=== PATIENT | male | born 1955 | race American Indian/Alaskan Native ===

== ENCOUNTER 2021-04-10 06:03 | Emergency (ER) | payer MEDICARE ==
[2021-04-10 07:30] VITALS: BP 189/127
--- NOTE | 2021-04-10 10:03 | Emergency Department Report ---
ED General Adult HPI - General Chief complaint: Medical Clearance Stated complaint: MEDICAL CLEARANCE Time Seen by Provider: 04/10/21 09:12 Source: patient Mode of arrival: Ambulatory Limitations: No Limitations - History of Present Illness Initial comments: 65-year-old -English male patient presents for medical clearance for [place]. Patient states he is going to [place] to detox from alcohol. He does state polysubstance abuse.. He denies any SI/HI, history of withdrawal seizures, abdominal pain, chest pain, or shortness of breath today. He states he is otherwise feeling well. Patient reports his last drink was yesterday - Related Data Allergies Allergy/AdvReac Type Severity Reaction Status Date / Time No Known Allergies Allergy Verified 04/10/21 07:30 ED Review of Systems ROS: Stated complaint: MEDICAL CLEARANCE Other details as noted in HPI Constitutional: denies: chills, diaphoresis, fever, malaise, weakness Respiratory: denies: cough, shortness of breath Cardiovascular: denies: chest pain Gastrointestinal: denies: abdominal pain, nausea, vomiting Neurological: denies: headache, weakness ED Physical Exam - General Limitations: No Limitations General appearance: alert, in no apparent distress - Head Head exam: Present: atraumatic, normocephalic - Eye Eye exam: Present: normal appearance - Respiratory Respiratory exam: Absent: respiratory distress - Cardiovascular Cardiovascular Exam: Present: regular rate, normal rhythm - GI/Abdominal GI/Abdominal exam: Present: soft. Absent: tenderness - Neurological Exam Neurological exam: Present: alert, oriented X3 - Psychiatric Psychiatric exam: Present: normal affect, normal mood - Skin Skin exam: Present: warm, dry, intact, normal color. Absent: rash ED Course Vital Signs 04/10/21 07:30 Temperature 97.9 F Pulse Rate 75 Respiratory 18 Rate Blood Pressure 189/127 [Left] O2 Sat by Pulse 98 Oximetry ED Medical Decision Making - Lab Data Result diagrams: 04/10/21 13:06 04/10/21 13:06 Lab Results 04/10/21 04/10/21 04/10/21 Range/Units 12:12 12:12 13:06 WBC 4.4 L (4.5-11.0) K/mm3 RBC 5.37 H (3.65-5.03) M/mm3 Hgb 17.5 H (11.8-15.2) gm/dl Hct 51.7 H (35.5-45.6) % MCV 96 H (84-94) fl MCH 33 H (28-32) pg MCHC 34 (32-34) % RDW 15.0 (13.2-15.2) % Plt Count 233 (140-440) K/mm3 Lymph % (Auto) 39.0 H (13.4-35.0) % Garrett % (Auto) 14.0 H (0.0-7.3) % Eos % (Auto) 5.2 H (0.0-4.3) % Baso % (Auto) 1.4 (0.0-1.8) % Lymph # (Auto) 1.7 (1.2-5.4) K/mm3 Garrett # (Auto) 0.6 (0.0-0.8) K/mm3 Eos # (Auto) 0.2 (0.0-0.4) K/mm3 Baso # (Auto) 0.1 (0.0-0.1) K/mm3 Seg Neutrophils % 40.4 (40.0-70.0) % Seg Neutrophils # 1.8 (1.8-7.7) K/mm3 Sodium (137-145) mmol/L Potassium (3.6-5.0) mmol/L Chloride (98-107) mmol/L Carbon Dioxide (22-30) mmol/L Anion Gap mmol/L BUN (9-20) mg/dL Creatinine (0.8-1.3) mg/dL Estimated GFR ml/min BUN/Creatinine Ratio % Glucose (75-100) mg/dL Calcium (8.4-10.2) mg/dL Total Bilirubin (0.1-1.2) mg/dL AST (5-40) units/L ALT (7-56) units/L Alkaline Phosphatase (35-129) units/L Total Protein (6.3-8.2) g/dL Albumin (3.9-5) g/dL Albumin/Globulin Ratio % Urine Color Yellow (Yellow) Urine Turbidity Clear (Clear) Urine pH 7.0 (5.0-7.0) Ur Specific [place] 1.012 (1.003-1.030) Urine Protein 30 mg/dl (Negative) mg/dL Urine Glucose (UA) Neg (Negative) mg/dL Urine Ketones Neg (Negative) mg/dL Urine Blood Neg (Negative) Urine Nitrite Neg (Negative) Urine Bilirubin Neg (Negative) Urine Urobilinogen < 2.0 (<2.0) mg/dL Ur Leukocyte Esterase Neg (Negative) Urine WBC (Auto) 5.0 (0.0-6.0) /HPF Urine RBC (Auto) 2.0 (0.0-6.0) /HPF U Epithel Cells (Auto) 2.0 (0-13.0) /HPF Salicylates (2.8-20.0) mg/dL Urine Opiates Screen Presumptive negative Urine Methadone Screen Presumptive negative Acetaminophen (10.0-30.0) ug/mL Ur Barbiturates Screen Presumptive negative Ur Phencyclidine Scrn Presumptive negative Ur Amphetamines Screen Presumptive negative U Benzodiazepines Scrn Presumptive negative Urine Cocaine Screen Presumptive positive U Marijuana (THC) Screen Presumptive negative Drugs of Abuse Note Disclamer 04/10/21 04/10/21 04/10/21 Range/Units 13:06 13:06 13:06 WBC (4.5-11.0) K/mm3 RBC (3.65-5.03) M/mm3 Hgb (11.8-15.2) gm/dl Hct (35.5-45.6) % MCV (84-94) fl MCH (28-32) pg MCHC (32-34) % RDW (13.2-15.2) % Plt Count (140-440) K/mm3 Lymph % (Auto) (13.4-35.0) % Garrett % (Auto) (0.0-7.3) % Eos % (Auto) (0.0-4.3) % Baso % (Auto) (0.0-1.8) % Lymph # (Auto) (1.2-5.4) K/mm3 Garrett # (Auto) (0.0-0.8) K/mm3 Eos # (Auto) (0.0-0.4) K/mm3 Baso # (Auto) (0.0-0.1) K/mm3 Seg Neutrophils % (40.0-70.0) % Seg Neutrophils # (1.8-7.7) K/mm3 Sodium 140 (137-145) mmol/L Potassium 4.5 (3.6-5.0) mmol/L Chloride 99.2 (98-107) mmol/L Carbon Dioxide 33 H (22-30) mmol/L Anion Gap 12 mmol/L BUN 24 H (9-20) mg/dL Creatinine 1.5 H (0.8-1.3) mg/dL Estimated GFR 56 ml/min BUN/Creatinine Ratio 16 % Glucose 99 (75-100) mg/dL Calcium 9.4 (8.4-10.2) mg/dL Total Bilirubin 0.40 (0.1-1.2) mg/dL AST 83 H (5-40) units/L ALT 60 H (7-56) units/L Alkaline Phosphatase 94 (35-129) units/L Total Protein 8.5 H (6.3-8.2) g/dL Albumin 4.4 (3.9-5) g/dL Albumin/Globulin Ratio 1.1 % Urine Color (Yellow) Urine Turbidity (Clear) Urine pH (5.0-7.0) Ur Specific [place] (1.003-1.030) Urine Protein (Negative) mg/dL Urine Glucose (UA) (Negative) mg/dL Urine Ketones (Negative) mg/dL Urine Blood (Negative) Urine Nitrite (Negative) Urine Bilirubin (Negative) Urine Urobilinogen (<2.0) mg/dL Ur Leukocyte Esterase (Negative) Urine WBC (Auto) (0.0-6.0) /HPF Urine RBC (Auto) (0.0-6.0) /HPF U Epithel Cells (Auto) (0-13.0) /HPF Salicylates < 0.3 L (2.8-20.0) mg/dL Urine Opiates Screen Urine Methadone Screen Acetaminophen 5.0 L (10.0-30.0) ug/mL Ur Barbiturates Screen Ur Phencyclidine Scrn Ur Amphetamines Screen U Benzodiazepines Scrn Urine Cocaine Screen U Marijuana (THC) Screen Drugs of Abuse Note - Medical Decision Making 65-year-old -English male patient presents for medical clearance for [place]. Patient states he is going to [facility] to detox from alcohol. He does state polysubstance abuse.. He denies any SI/HI, history of withdrawal seizures, abdominal pain, chest pain, or shortness of breath today. He states he is otherwise feeling well. Patient reports his last drink was yesterday Labs show mildly increased creatinine at 1.5 and a GFR 56. Drug screen is positive for cocaine. Mild elevation in LFTs noted, likely due to chronic alcohol abuse. His vitals are within normal limits and he is well-appearing without tremors. Patient is stable for discharge home. He is medically clear for admission to psychiatric facility for alcohol detox. Patient instructed to follow-up with primary care doctor for further evaluation of his kidney function and liver function. Patient verbalizes understanding of plan of care. Critical care attestation.: If time is entered above; I have spent that time in minutes in the direct care of this critically ill patient, excluding procedure time. ED Disposition Clinical Impression: Medical clearance for psychiatric admission Disposition: HOME / SELF CARE / HOMELESS Is pt being admited?: No Condition: Stable Instructions: Alcohol Use Disorder Additional Instructions: You are medically clear for admission to a detox facility Referrals: PRIMARY MD CELIA [Primary Care Provider] - 3-5 Days
[2021-04-10 12:21] LABS: Bilirubin,Urine NEG (Negative); Blood,Urine NEG (Negative); Color,Urine Yellow (Yellow); Urobilinogen,Urine < 2.0 mg/dL (<2.0)
[2021-04-10 12:45] LABS: Amphetamine Screen,Urine PRESUMPTIVE NEGATIVE; Benzodiazepines Screen,Urine PRESUMPTIVE NEGATIVE; Cannabinoid Screen,Urine PRESUMPTIVE NEGATIVE; Cocaine Screen,Urine PRESUMPTIVE POSITIVE; Methadone Screen,Urine PRESUMPTIVE NEGATIVE; Opiate Screen,Urine PRESUMPTIVE NEGATIVE
[2021-04-10 13:48] LABS: Basophils # (Auto) 0.1 K/mm3 (0.0-0.1); Basophils % (Auto) 1.4 % (0.0-1.8); Eosinophils # (Auto) 0.2 K/mm3 (0.0-0.4); Eosinophils % (Auto) 5.2 % (0.0-4.3); Hematocrit 51.7 % (35.5-45.6); Hemoglobin 17.5 gm/dl (11.8-15.2); Lymphocytes # (Auto) 1.7 K/mm3 (1.2-5.4); Mean Corpuscular HGB Conc 34 % (32-34); Mean Corpuscular Volume 96 fl (84-94); Monocytes # (Auto) 0.6 K/mm3 (0.0-0.8); Platelet Count 233 K/mm3 (140-440); Red Blood Count 5.37 M/mm3 (3.65-5.03)
[2021-04-10 14:02] LABS: Albumin 4.4 g/dL (3.9-5); Calcium 9.4 mg/dL (8.4-10.2)
== END 2021-04-11 03:32 | disposition home or self-care (01) ==
LOC: ED 06:03
DX: Z13.30 Encounter for screening examination for mental health and behavioral disorders, unspecified (principal); F19.10 Other psychoactive substance abuse, uncomplicated
CPT/HCPCS: 36415; 80053; 80307; 80320; 81001; 85025; 99283; G0480

== ENCOUNTER 2021-04-16 10:29 | Inpatient (IN) | payer MEDICARE ==
[2021-04-16 12:12] LABS: Eosinophils # (Auto) 0.2 K/mm3 (0.0-0.4); Eosinophils % (Auto) 5.6 % (0.0-4.3); Hematocrit 48.5 % (35.5-45.6); Hemoglobin 16.2 gm/dl (11.8-15.2); Lymphocytes # (Auto) 1.2 K/mm3 (1.2-5.4); Lymphocytes % (Auto) 30.4 % (13.4-35.0); Mean Corpuscular HGB Conc 34 % (32-34); Mean Corpuscular Volume 96 fl (84-94); Monocytes # (Auto) 0.6 K/mm3 (0.0-0.8); Monocytes % (Auto) 15.1 % (0.0-7.3); Platelet Count 217 K/mm3 (140-440); Red Blood Count 5.04 M/mm3 (3.65-5.03); Red Cell Distribution Width 15.1 % (13.2-15.2)
--- NOTE | 2021-04-16 12:20 | Emergency Department Report ---
ED Neuro Deficit HPI - General Chief Complaint: Weakness Stated Complaint: BILATERAL LEG WEAKNESS X 2 DAYS Time Seen by Provider: 04/16/21 11:18 Source: patient, EMS Mode of arrival: Stretcher Limitations: No Limitations - History of Present Illness Initial Comments: Chief complaint: Bilateral leg weakness . HPI: This is a 65-year-old male with history of hypertension, alcohol dependence, cocaine dependence who presents with bilateral leg weakness urinary incontinence for the last 2 days. Patient denies trauma. He denies headache neck pain back pain. No previous history of back pain. He has been a patient at [facility] for the past several days. No recent vaccinations. He has not been vaccinated against COVID-19. He has had recent negative COVID-19 test. He currently is a patient at [facility] for polysubstance abuse rehabilitation. [place]" for 3 months. He has not had primary care in over 2 years. He was followed closely by PCP prior to that time. 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 He is estranged from his family members. His mother of COVID-19 complications this year. He is in touch with sister who lives in [place]. He was not given anything in his mother's estate. He is very upset that he was cut off financially from the family. -: Gradual, days(s) (2 days) History of same: No Severity: severe Quality: weak Improves With: none Worsens With: none On Anticoagulants: No Associated Symptoms: other (Bilateral leg weakness, inability to walk, urinary incontinence) Treatments Prior to Arrival: other (Mental health evaluation at [facility]) - Related Data Allergies/Adverse Reactions: Allergies Allergy/AdvReac Type Severity Reaction Status Date / Time No Known Allergies Allergy Verified 04/16/21 17:03 ED Review of Systems ROS: Stated complaint: BILATERAL LEG WEAKNESS X 2 DAYS Other details as noted in HPI Comment: All other systems reviewed and negative Constitutional: other (Denies weight loss). denies: chills, fever, malaise Respiratory: denies: cough, orthopnea Cardiovascular: denies: chest pain Gastrointestinal: denies: abdominal pain, nausea, vomiting Musculoskeletal: denies: back pain Neurological: denies: headache ED Past Medical Hx - Past Medical History Previous Medical History?: Yes Hx Hypertension: Yes Additional medical history: Alcohol dependence, cocaine dependence - Surgical History Past Surgical History?: Yes Additional Surgical History: Left hip replacement, urethral stricture surgery - Social History Smoking Status: Current Every Day Smoker Substance Use Type: Alcohol, Cocaine, Marijuana ED Neuro Physical Exam - General Limitations: No Limitations General appearance: alert, in no apparent distress Suspected Stroke: Yes - Head Head exam: Present: atraumatic, normocephalic - Eye Eye exam: Present: normal appearance - ENT ENT exam: Present: mucous membranes moist - Neck Neck exam: Present: normal inspection, full ROM - Respiratory Respiratory exam: Present: normal lung sounds bilaterally. Absent: respiratory distress, wheezes, rales, rhonchi - Cardiovascular Cardiovascular Exam: Present: regular rate, normal rhythm, normal heart sounds. Absent: systolic murmur, diastolic murmur, rubs, gallop - GI/Abdominal GI/Abdominal exam: Present: soft, normal bowel sounds. Absent: distended, tenderness, guarding, rebound - Rectal Rectal exam: Present: decreased rectal tone, other (Decreased rectal tone) - Extremities Exam Extremities exam: Present: normal inspection - Neurological Exam Neurological exam: Present: alert, oriented X3 - NIHSS Assessment Interval: Baseline 1a. Level of Consciousness: alert/keenly responsive 1b. LOC Questions: answers both correctly 1c. LOC Commands: performs tasks correctly 2. Best Gaze: normal 3. Visual: no visual loss 4. Facial Palsy: normal symmetrical movement 5b. Motor Arm Right: no drift 5a. Motor Arm Left: no drift 6a. Motor Leg Left: drift 6b. Motor Leg Right: drift 7. Limb Ataxia: present 2 limbs (Both legs) 8. Sensory: coma/unresponsive 9. Best Language: no aphasia 10. Dysarthria: normal 11. Extinction/Inattention: no abnormality Total Score: 6 Stroke Severity: Moderate Stroke - Psychiatric Psychiatric exam: Present: normal affect, normal mood - Skin Skin exam: Present: warm, dry, intact, normal color. Absent: rash ED Course Vital Signs 04/16/21 04/16/21 04/16/21 11:16 11:23 14:42 Pulse Rate 62 110 H Respiratory 16 16 Rate Blood Pressure 138/94 155/83 [Left] O2 Sat by Pulse 96 98 99 Oximetry - Reevaluation(s) Reevaluation #1: 04/16/21 12:20 MR maintenance technician 2nd shift is taking patient to radiology for imaging. - Lab Data Result diagrams: 04/16/21 11:52 04/16/21 11:52 Lab Results 04/16/21 04/16/21 04/16/21 Range/Units 11:52 11:52 11:52 WBC 4.0 L (4.5-11.0) K/mm3 RBC 5.04 H (3.65-5.03) M/mm3 Hgb 16.2 H (11.8-15.2) gm/dl Hct 48.5 H (35.5-45.6) % MCV 96 H (84-94) fl MCH 32 (28-32) pg MCHC 34 (32-34) % RDW 15.1 (13.2-15.2) % Plt Count 217 (140-440) K/mm3 Lymph % (Auto) 30.4 (13.4-35.0) % Butts % (Auto) 15.1 H (0.0-7.3) % Eos % (Auto) 5.6 H (0.0-4.3) % Baso % (Auto) 1.0 (0.0-1.8) % Lymph # (Auto) 1.2 (1.2-5.4) K/mm3 Butts # (Auto) 0.6 (0.0-0.8) K/mm3 Eos # (Auto) 0.2 (0.0-0.4) K/mm3 Baso # (Auto) 0.0 (0.0-0.1) K/mm3 Seg Neutrophils % 47.9 (40.0-70.0) % Seg Neutrophils # 1.9 (1.8-7.7) K/mm3 Sodium 136 L (137-145) mmol/L Potassium 4.5 (3.6-5.0) mmol/L Chloride 100.1 (98-107) mmol/L Carbon Dioxide 32 H (22-30) mmol/L Anion Gap 8 mmol/L BUN 21 H (9-20) mg/dL Creatinine 1.8 H (0.8-1.3) mg/dL Estimated GFR 46 ml/min BUN/Creatinine Ratio 12 % Glucose 88 (75-100) mg/dL Calcium 9.1 (8.4-10.2) mg/dL Phosphorus 3.70 (2.5-4.5) mg/dL Magnesium 1.90 (1.7-2.3) mg/dL Total Bilirubin 0.40 (0.1-1.2) mg/dL AST 76 H (5-40) units/L ALT 72 H (7-56) units/L Alkaline Phosphatase 87 (35-129) units/L Total Creatine Kinase (55-170) units/L Total Protein 7.6 (6.3-8.2) g/dL Albumin 3.7 L (3.9-5) g/dL Albumin/Globulin Ratio 0.9 % TSH 0.682 (0.270-4.200) mlU/mL 04/16/21 Range/Units 15:31 WBC (4.5-11.0) K/mm3 RBC (3.65-5.03) M/mm3 Hgb (11.8-15.2) gm/dl Hct (35.5-45.6) % MCV (84-94) fl MCH (28-32) pg MCHC (32-34) % RDW (13.2-15.2) % Plt Count (140-440) K/mm3 Lymph % (Auto) (13.4-35.0) % Butts % (Auto) (0.0-7.3) % Eos % (Auto) (0.0-4.3) % Baso % (Auto) (0.0-1.8) % Lymph # (Auto) (1.2-5.4) K/mm3 Butts # (Auto) (0.0-0.8) K/mm3 Eos # (Auto) (0.0-0.4) K/mm3 Baso # (Auto) (0.0-0.1) K/mm3 Seg Neutrophils % (40.0-70.0) % Seg Neutrophils # (1.8-7.7) K/mm3 Sodium (137-145) mmol/L Potassium (3.6-5.0) mmol/L Chloride (98-107) mmol/L Carbon Dioxide (22-30) mmol/L Anion Gap mmol/L BUN (9-20) mg/dL Creatinine (0.8-1.3) mg/dL Estimated GFR ml/min BUN/Creatinine Ratio % Glucose (75-100) mg/dL Calcium (8.4-10.2) mg/dL Phosphorus (2.5-4.5) mg/dL Magnesium (1.7-2.3) mg/dL Total Bilirubin (0.1-1.2) mg/dL AST (5-40) units/L ALT (7-56) units/L Alkaline Phosphatase (35-129) units/L Total Creatine Kinase 177 H (55-170) units/L Total Protein (6.3-8.2) g/dL Albumin (3.9-5) g/dL Albumin/Globulin Ratio % TSH (0.270-4.200) mlU/mL - Radiology Data Radiology results: report reviewed Patient Name: ORI COTO Gender: Male Date of : 1955 Referring Provider: ANGELA HOLLINS Organization: [facility] Accession Number: [id number] Requested Date: April 16, 2021 11:33 Report Status: Final Requested Procedure: 1 Procedure Description: MR thoracic spine wo con Modality: MR Findings Reporting MD: Andrea Jane Dictation Time: April 16, 2021 13:28 Manager Of Compliance: Not available Orchestra Director Date: MRI THORACIC SPINE 04/16/2021 INDICATION / CLINICAL INFORMATION: Bilateral leg weakness urinary incontinence. COMPARISON: None available. FINDINGS: GENERAL OBSERVATIONS: Unenhanced MR images of the thoracic spine demonstrate no evidence of acute abnormality. There is no evidence of spinal cord compression or intrinsic spinal cord abnormality. Vertebral body height and alignment is normal. Disc profiles are normal at all levels in the thoracic spine. There is no evidence of canal stenosis or foraminal encroachment. BONE MARROW: Normal SPINAL CORD: Normal PARASPINAL SOFT TISSUES: No significant abnormality. IMPRESSION: No significant abnormality. Signer Name: Andrea Jane MD Signed: 04/16/2021 1:28 PM Workstation Name: [id number] Patient Name: ORI COTO Gender: Male Date of : 1955 Referring Provider: ANGELA HOLLINS Organization: [facility] Accession Number: [id number] Requested Date: April 16, 2021 11:33 Report Status: Final Requested Procedure: 1 Procedure Description: MR brain wo con Modality: MR Findings Reporting MD: Andrea Jane Dictation Time: April 16, 2021 13:31 Manager Of Compliance: Not available Orchestra Director Date: MRI BRAIN 04/16/2021 INDICATION / CLINICAL INFORMATION: Bilateral leg weakness urinary incontinence. TECHNIQUE: Multiplanar, multisequence MR images of the brain were obtained. COMPARISON: None available. FINDINGS: BRAIN / INTRACRANIAL CONTENTS: Unenhanced MR images of the brain demonstrate no evidence of acute abnormality. Ventricles and sulci are prominent in size, consistent with diffuse cerebral atrophy. There is prominent chronic white matter T2 weighted hyperintensities present throughout the periventricular and deep white matter of the cerebral hemispheres. There is evidence of focal lacunar changes in the thalami bilaterally and right paramedian elkin. There is no evidence of acute ischemic injury, hemorrhage, or mass. There are no abnormal extra-axial fluid collections. EXTRACRANIAL: Unremarkable CRANIOCERVICAL JUNCTION: No significant abnormality. VASCULAR FLOW-VOIDS: No significant abnormality. IMPRESSION: Chronic and age-related changes. No acute abnormality. Signer Name: Andrea Jane MD Signed: 04/16/2021 1:31 PM Workstation Name: [id number] Patient Name: ORI COTO Gender: Male Date of : 1955 Referring Provider: ANGELA HOLLINS Organization: [facility] Accession Number: [id number] Requested Date: April 16, 2021 11:33 Report Status: Final Requested Procedure: 1 Procedure Description: MR lumbar spine wo con Modality: MR Findings Reporting MD: Andrea Jane Dictation Time: April 16, 2021 13:27 Manager Of Compliance: Not available Orchestra Director Date: MRI LUMBAR SPINE 04/16/2021 INDICATION / CLINICAL INFORMATION: Bilateral leg weakness urinary incontinence. COMPARISON: None available. FINDINGS: GENERAL OBSERVATIONS: Unenhanced MR images of the lumbar spine were obtained. There is mild right convex scoliosis centered at the thoracolumbar junction. Multilevel degenerative changes are present as detailed below. [id number] ANALYSIS: L5-S1: Moderate diffuse disc bulging. Mild central canal narrowing with prominent bilateral foraminal encroachment and possible compression of the exiting right and left L5 nerve roots. L4-5: Mild symmetric diffuse disc bulging. L3-4: Moderate symmetric diffuse disc bulging. Moderate central canal narrowing, with right-sided foraminal narrowing present. L2-3: Prominent diffuse disc bulging associated with moderately severe central canal stenosis. No evidence of lateralization. L1-2: Unremarkable. BONE MARROW: Degenerative changes. No significant abnormality. SPINAL CORD/CAUDA EQUINA: Unremarkable PARASPINAL SOFT TISSUES: No significant abnormality. IMPRESSION: 1. No acute abnormality. 2. Multilevel degenerative changes as detailed above. Moderately severe central canal stenosis at L2-3. Signer Name: Andrea Jane MD [facility] [address] , [address] [place] [address] Patient Name: ORI COTO Gender: Male Date of : 1955 Referring Provider: ANGELA HOLLINS Organization: [facility] Accession Number: [id number] Requested Date: April 16, 2021 11:38 Report Status: Final Requested Procedure: 1 Procedure Description: XR chest 1V ap Modality: XR Findings Reporting MD: Sudeep Sanchez Dictation Time: April 16, 2021 11:26 Manager Of Compliance: Not available Orchestra Director Date: CHEST 1 VIEW INDICATION: bilateral leg weakness. COMPARISON: None. FINDINGS: Support devices: None. Heart: Normal. Lungs/Pleura: No acute pulmonary or pleural findings. There is mild scarring versus atelectasis in the left lung base. IMPRESSION: 1. No acute findings. Signer Name: Sudeep Sanchez MD Signed: 04/16/2021 11:26 AM Workstation Name: [id number] - Medical Decision Making This is a 65-year-old male with history of alcohol dependence, hypertension, cocaine use who presents with viral leg weakness, unsteady gait possible urinary incontinence. Due to decreased rectal tone I was concerned for cord compression. Fortunately MRI denied reveal any significant spinal canal encroachment or spinal cord abnormality. I discussed case with Dr. Rojas neurosurgeon who confirms that patient does not have a neurological emergency or significant spinal cord compression which would need intervention. Differential diagnosis includes Warnicke's encephalopathy, delirium tremens, vitamin deficiency causing neuropathy, alcoholic myopathy. CVA intracranial lesion ruled out with MRI of the brain which revealed chronic age-related changes. Critical Care Time: Yes Critical care time in (mins) excluding proc time.: 40 Critical care attestation.: If time is entered above; I have spent that time in minutes in the direct care of this critically ill patient, excluding procedure time. 40 minutes of critical care time excluding procedures were used in the care of the patient. I came immediately to the bedside upon patient's arrival. I obtained history from EMS at the bedside. I discussed treatment plan with the nursing team members. I reviewed electronic record. I ordered stat MRI: I was concerned for spinal cord compression considering patient's findings of leg weakness decreased rectal tone reported urinary incontinence.. Patient required multiple interventions and reassessments. ED Disposition Clinical Impression: Delirium tremens, Acute kidney injury (KRISH) with acute tubular necrosis (ATN), Lumbar disc disease, Metabolic encephalopathy Disposition: ADMITTED INPATIENT Is pt being admited?: Yes Does the pt Need Aspirin: No Condition: Fair
--- NOTE | 2021-04-16 12:30 | XRay Report ---
CHEST 1 VIEW INDICATION: bilateral leg weakness. COMPARISON: None. FINDINGS: Support devices: None. Heart: Normal. Lungs/Pleura: No acute pulmonary or pleural findings. There is mild scarring versus atelectasis in th e left lung base. IMPRESSION: 1. No acute findings. Signer Name: Sudeep Sanchez MD Signed: 04/16/2021 12:26 PM Workstation Name: [id number]
[2021-04-16 12:36] LABS: Albumin 3.7 g/dL (3.9-5); Calcium 9.1 mg/dL (8.4-10.2)
--- NOTE | 2021-04-16 14:31 | Magnetic Resonance Report ---
MRI LUMBAR SPINE 04/16/2021 INDICATION / CLINICAL INFORMATION: Bilateral leg weakness urinary incontinence. COMPARISON: None available. FINDINGS: GENERAL OBSERVATIONS: Unenhanced MR images of the lumbar spine were obtained. There is mild right convex scoliosis centered at the thoracolumbar junction. Multilevel degenerative changes are present as detailed below. [id number] ANALYSIS: L5-S1: Moderate diffuse disc bulging. Mild central canal narrowing with prominent bilateral foraminal encroachment and possible compression of the exiting right and left L5 nerve roots. L4-5: Mild symmetric diffuse disc bulging. L3-4: Moderate symmetric diffuse disc bulging. Moderate central canal narrowing, with right-sided for aminal narrowing present. L2-3: Prominent diffuse disc bulging associated with moderately severe central canal stenosis. No ric dence of lateralization. L1-2: Unremarkable. BONE MARROW: Degenerative changes. No significant abnormality. SPINAL CORD/CAUDA EQUINA: Unremarkable PARASPINAL SOFT TISSUES: No significant abnormality. IMPRESSION: 1. No acute abnormality. 2. Multilevel degenerative changes as detailed above. Moderately severe central canal stenosis at L2- 3. Signer Name: Andrea Jane MD Signed: 04/16/2021 2:27 PM Workstation Name: [id number]
--- NOTE | 2021-04-16 14:33 | Magnetic Resonance Report ---
MRI THORACIC SPINE 04/16/2021 INDICATION / CLINICAL INFORMATION: Bilateral leg weakness urinary incontinence. COMPARISON: None available. FINDINGS: GENERAL OBSERVATIONS: Unenhanced MR images of the thoracic spine demonstrate no evidence of acute abn ormality. There is no evidence of spinal cord compression or intrinsic spinal cord abnormality. Vertebral body height and alignment is normal. Disc profiles are normal at all levels in the thoracic spine. There is no evidence of canal stenosis or foraminal encroachment. BONE MARROW: Normal SPINAL CORD: Normal PARASPINAL SOFT TISSUES: No significant abnormality. IMPRESSION: No significant abnormality. Signer Name: Andrea Jane MD Signed: 04/16/2021 2:28 PM Workstation Name: [facility])-[id number]
--- NOTE | 2021-04-16 14:36 | Magnetic Resonance Report ---
MRI BRAIN 04/16/2021 INDICATION / CLINICAL INFORMATION: Bilateral leg weakness urinary incontinence. TECHNIQUE: Multiplanar, multisequence MR images of the brain were obtained. COMPARISON: None available. FINDINGS: BRAIN / INTRACRANIAL CONTENTS: Unenhanced MR images of the brain demonstrate no evidence of acute abn ormality. Ventricles and sulci are prominent in size, consistent with diffuse cerebral atrophy. There is prominent chronic white matter T2 weighted hyperintensities present throughout the periventr icular and deep white matter of the cerebral hemispheres. There is evidence of focal lacunar changes in the thalami bilaterally and right paramedian elkin. There is no evidence of acute ischemic injury, hemorrhage, or mass. There are no abnormal extra-axial fluid collections. EXTRACRANIAL: Unremarkable CRANIOCERVICAL JUNCTION: No significant abnormality. VASCULAR FLOW-VOIDS: No significant abnormality. IMPRESSION: Chronic and age-related changes. No acute abnormality. Signer Name: Andrea Jane MD Signed: 04/16/2021 2:31 PM Workstation Name: [id number]
--- NOTE | 2021-04-16 15:24 | History and Physical Report ---
History of Present Illness Chief complaint: I am weak History of present illness: 65 YO Female with HTN, ETOH Dependence,Nicotine Dependence, PSA, Vascular Dementia with Behavioral Disturbance, Cerebral Atherosclerosis currently an inpatient at [facility] for polysubstance abuse presents to ED for evaluation. Patient has diminished cognition and is only able to provide minimal history. Patient reports I feel weak". Additional history taken from EMS staff, ED staff, as well as records facility staff. As per staff the patient had experienced increased confusion over the past 1 day with concomitant complaints of weakness. EMS was notified and upon arrival the patient was found to be in distress and subsequent transported to [facility] for further care and evaluation of the aforementioned symptoms. The patient was seen and evaluated in the emergency department. All lab and imaging studies reviewed. The patient was found to be tremulous, agitated, diaphoretic, confused. Patient found to have clinical symptoms consistent with delirium tremens as well as acute kidney injury, metabolic encephalopathy, osteoarthritis, and lumbar disc disease. Neurosurgery team consulted in ED. Patient admitted to medical floor and initiated on CIWA protocol due to increased risk of worsening symptoms. No further history is obtainable. Patient has a positive gag reflex and is able to protect his airway without difficulty. No prior admission for review. No medication listed at time of admission for reconciliation. Patient has not been vaccinated against COVID-19. Advanced care planning conducted in ED. Past History Past Medical History: hypertension, other (See HPI) Past Surgical History: total hip replacement Social history: , smoking, alcohol abuse Family history: hypertension Medications and Allergies Allergies Allergy/AdvReac Type Severity Reaction Status Date / Time No Known Allergies Allergy Verified 04/16/21 17:03 Review of Systems ROS unobtainable: due to mental status Exam - Constitutional Vitals: Temp Pulse Resp BP Pulse Ox 110 H 16 155/83 99 04/16/21 14:42 04/16/21 14:42 04/16/21 14:42 04/16/21 14:42 General appearance: Present: mild distress - EENT Eyes: Present: PERRL ENT: clear oral mucosa, hearing decreased - Neck Neck: Present: supple, normal ROM - Respiratory Respiratory effort: normal Respiratory: bilateral: CTA - Cardiovascular Heart Sounds: Present: S1 & S2. Absent: rub, click - Extremities Extremities: pulses symmetrical, No edema Peripheral Pulses: within normal limits - Abdominal General gastrointestinal: Present: soft, non-tender, non-distended, normal bowel sounds Male genitourinary: Present: normal - Integumentary Integumentary: Present: clear, dry, clammy, decreased turgor - Musculoskeletal Musculoskeletal: generalized weakness - Psychiatric Psychiatric: no appropriate mood/affect, no intact judgment & insight, no memory intact, agitated, other (Tremulous, diaphoretic) - Neurologic Neurologic: CNII-XII intact, no focal deficits, moves all extremities, gait normal Results - Labs CBC & Chem 7: 04/16/21 11:52 04/16/21 11:52 Labs: Abnormal lab results 04/16/21 04/16/21 Range/Units 11:52 11:52 WBC 4.0 L (4.5-11.0) K/mm3 RBC 5.04 H (3.65-5.03) M/mm3 Hgb 16.2 H (11.8-15.2) gm/dl Hct 48.5 H (35.5-45.6) % MCV 96 H (84-94) fl [place] % (Auto) 15.1 H (0.0-7.3) % Eos % (Auto) 5.6 H (0.0-4.3) % Sodium 136 L (137-145) mmol/L Carbon Dioxide 32 H (22-30) mmol/L BUN 21 H (9-20) mg/dL Creatinine 1.8 H (0.8-1.3) mg/dL AST 76 H (5-40) units/L ALT 72 H (7-56) units/L Albumin 3.7 L (3.9-5) g/dL Assessment and Plan - Patient Problems (1) Delirium tremens Current Visit: Yes Status: Acute Plan to address problem: Alcohol withdrawal protocol: Seizure precautions, aspiration precautions, fall precautions, banana bag, CIWA protocol, IV fluid resuscitation therapy (2) Acute kidney injury (KRISH) with acute tubular necrosis (ATN) Current Visit: Yes Status: Acute Plan to address problem: BMP, IV fluid resuscitation therapy, repeat BMP in a.m. to monitor serum creatinine as well as GFR (3) Lumbar disc disease Current Visit: Yes Status: Acute Plan to address problem: MRI of thoracic and lumbar spine, neurosurgery team consulted, IV steroid therapy, supportive care. Outpatient neurosurgery follow-up. (4) Osteoarthritis Current Visit: Yes Status: Acute Plan to address problem: Supportive care, pain control. (5) Metabolic encephalopathy Current Visit: Yes Status: Acute Plan to address problem: Neuro check, seizure precautions, aspiration precautions, fall precautions, IV fluid resuscitation therapy, MRI brain (6) DVT prophylaxis Current Visit: Yes Status: Acute Plan to address problem: SCD to bilateral lower extremities while in bed (7) Advance care planning Current Visit: Yes Status: Acute Plan to address problem: Disease education conducted, care plan discussed, diagnosis discussed, prognosis discussed, +30 minutes.
[2021-04-16] MEDS ORDERED: oxyCODONE /ACETAMINOPHEN 5-325MG TAB PO PRN (16:57)
[2021-04-16] MEDS ORDERED: HYDROmorphone 1 MG/1 ML INJ IV PRN (16:57)
[2021-04-16] MEDS ORDERED: ACETAMINOPHEN 325 MG TAB PO PRN (16:57)
[2021-04-16] MEDS ORDERED: ALBUTEROL 2.5 MG/3 ML NEBU IH PRN (16:57)
[2021-04-16] MEDS ORDERED: ONDANSETRON 4 MG/2 ML INJ IV PRN (16:57)
[2021-04-16] MEDS ORDERED: THIAMINE 100 MG, FOLIC ACID 1 MG, MULTIPLE VITAMIN INJ, ADULT 10 ML in SODIUM CHLORIDE ... IV ONE (16:59)
[2021-04-16] MEDS ORDERED: LORazepam 2 MG/ML VIAL IV PRN (16:59)
[2021-04-16] MEDS ORDERED: MULTIVITAMINS ,THERAPEUTIC TAB PO ONE (17:00)
[2021-04-16] MEDS: THIAMINE 100 MG TAB PO ONE ×2 (17:44→17:58)
[2021-04-17 04:45] LABS: Hematocrit 43.9 % (35.5-45.6); Hemoglobin 14.9 gm/dl (11.8-15.2); Mean Corpuscular HGB Conc 34 % (32-34); Mean Corpuscular Volume 96 fl (84-94); Platelet Count 211 K/mm3 (140-440); Red Blood Count 4.59 M/mm3 (3.65-5.03); Red Cell Distribution Width 14.7 % (13.2-15.2)
[2021-04-17 05:06] LABS: Albumin 3.4 g/dL (3.9-5); Calcium 8.4 mg/dL (8.4-10.2)
[2021-04-17 07:18] LABS: Total Cells Counted 100
[2021-04-17 07:19] LABS: Anisocytosis 1+; Platelet Estimate Consistent w Auto
--- NOTE | 2021-04-17 10:19 | Progress Note ---
Subjective Date of service: 04/17/21 Interval history: NSGY update: I have reviewed all imaging studies. There is no significant spinal cord or thecal sac compression visualized in the brain, thoracic or lumbar spine. There is no role for surgical intervention at this time. I recommend Neurology consultation to evaluate for demyelinating radiculopathy. Please notify if questions/concerns. Objective - Laboratory Findings CBC and BMP: 04/17/21 04:10 04/17/21 04:10 Abnormal Lab Findings: Abnormal Labs 04/16/21 04/16/21 04/16/21 11:52 11:52 15:31 WBC 4.0 L RBC 5.04 H Hgb 16.2 H Hct 48.5 H MCV 96 H MCH [place] % (Auto) 15.1 H Eos % (Auto) 5.6 H Monocytes % (Manual) Eosinophils % (Manual) Seg Neutrophils # Man Sodium 136 L Carbon Dioxide 32 H BUN 21 H Creatinine 1.8 H AST 76 H ALT 72 H Total Creatine Kinase 177 H Albumin 3.7 L 04/17/21 04/17/21 04:10 04:10 WBC 3.7 L RBC Hgb Hct MCV 96 H MCH 33 H [place] % (Auto) Eos % (Auto) Monocytes % (Manual) 12.0 H Eosinophils % (Manual) 8.0 H Seg Neutrophils # Man 1.7 L Sodium 136 L Carbon Dioxide 33 H BUN 22 H Creatinine 1.6 H AST 68 H ALT 66 H Total Creatine Kinase Albumin 3.4 L
[2021-04-17] MEDS: FOLIC ACID 1 MG TAB PO SCH (10:31)
--- NOTE | 2021-04-17 16:44 | Progress Note ---
Assessment and Plan (1) Delirium tremens Current Visit: Yes Status: Acute Plan to address problem: Alcohol withdrawal protocol: Seizure precautions, aspiration precautions, fall precautions, banana bag, CIWA protocol, IV fluid resuscitation therapy (2) Acute kidney injury (KRISH) with acute tubular necrosis (ATN) Current Visit: Yes Status: Acute Plan to address problem: BMP, IV fluid resuscitation therapy, repeat BMP in a.m. to monitor serum creatinine as well as GFR (3) Lumbar disc disease Current Visit: Yes Status: Acute Plan to address problem: MRI of thoracic and lumbar spine, neurosurgery team consulted, IV steroid therapy, supportive care. Outpatient neurosurgery follow-up. (4) Osteoarthritis Current Visit: Yes Status: Acute Plan to address problem: Supportive care, pain control. (5) Metabolic encephalopathy Current Visit: Yes Status: Acute Plan to address problem: Neuro check, seizure precautions, aspiration precautions, fall precautions, IV fluid resuscitation therapy, MRI brain (6) DVT prophylaxis Current Visit: Yes Status: Acute Plan to address problem: SCD to bilateral lower extremities while in bed (7) Advance care planning Current Visit: Yes Status: Acute Plan to address problem: Disease education conducted, care plan discussed, diagnosis discussed, prognosis discussed, +30 minutes. Daily clinical course: 04/17/21: Initiated on diet, continue CIWA protocol. Monitor clinically Subjective Date of service: 04/17/21 Objective - Labs CBC & Chem 7: 04/17/21 04:10 04/17/21 04:10 Labs: Abnormal lab results 04/16/21 04/17/21 04/17/21 Range/Units 15:31 04:10 04:10 WBC 3.7 L (4.5-11.0) K/mm3 MCV 96 H (84-94) fl MCH 33 H (28-32) pg Monocytes % (Manual) 12.0 H (0.0-7.3) % Eosinophils % (Manual) 8.0 H (0.0-4.3) % Seg Neutrophils # Man 1.7 L (1.8-7.7) K/mm3 Sodium 136 L (137-145) mmol/L Carbon Dioxide 33 H (22-30) mmol/L BUN 22 H (9-20) mg/dL Creatinine 1.6 H (0.8-1.3) mg/dL AST 68 H (5-40) units/L ALT 66 H (7-56) units/L Total Creatine Kinase 177 H (55-170) units/L Albumin 3.4 L (3.9-5) g/dL
[2021-04-18 05:43] LABS: BUN/Creatinine Ratio 16; Blood Urea Nitrogen 23 mg/dL (9-20); Calcium 8.6 mg/dL (8.4-10.2); Hemolysis Index 6
[2021-04-18] MEDS: FOLIC ACID 1 MG TAB PO SCH (10:49)
--- NOTE | 2021-04-18 15:57 | Progress Note ---
Assessment and Plan (1) Delirium tremens Current Visit: Yes Status: Acute Plan to address problem: Alcohol withdrawal protocol: Seizure precautions, aspiration precautions, fall precautions, banana bag, CIWA protocol, IV fluid resuscitation therapy (2) Acute kidney injury (KRISH) with acute tubular necrosis (ATN) Current Visit: Yes Status: Acute Plan to address problem: BMP, IV fluid resuscitation therapy, repeat BMP in a.m. to monitor serum creatinine as well as GFR (3) Lumbar disc disease Current Visit: Yes Status: Acute Plan to address problem: MRI of thoracic and lumbar spine, neurosurgery team consulted, IV steroid therapy, supportive care. Outpatient neurosurgery follow-up. (4) Osteoarthritis Current Visit: Yes Status: Acute Plan to address problem: Supportive care, pain control. (5) Metabolic encephalopathy Current Visit: Yes Status: Acute Plan to address problem: Neuro check, seizure precautions, aspiration precautions, fall precautions, IV fluid resuscitation therapy, MRI brain (6) DVT prophylaxis Current Visit: Yes Status: Acute Plan to address problem: SCD to bilateral lower extremities while in bed (7) Advance care planning Current Visit: Yes Status: Acute Plan to address problem: Disease education conducted, care plan discussed, diagnosis discussed, prognosis discussed, +30 minutes. Daily clinical course: 04/17/21: Initiated on diet, continue CIWA protocol. Monitor clinically Subjective Date of service: 04/18/21 Objective - Constitutional Vitals: Vital Signs - 12hr 04/18/21 04/18/21 04/18/21 04:06 04:11 08:25 Temperature 98.2 F Pulse Rate 76 Respiratory 16 18 Rate Blood Pressure 143/94 113/66 168/109 O2 Sat by Pulse 97 98 Oximetry 04/18/21 04/18/21 10:00 11:51 Temperature 98.1 F Pulse Rate 71 Respiratory 18 Rate Blood Pressure 142/95 O2 Sat by Pulse 99 97 Oximetry - Labs CBC & Chem 7: 04/17/21 04:10 04/18/21 05:11 Labs: Abnormal lab results 04/18/21 Range/Units 05:11 Sodium 133 L (137-145) mmol/L BUN 23 H (9-20) mg/dL Creatinine 1.4 H (0.8-1.3) mg/dL
--- NOTE | 2021-04-19 08:52 | Consultation ---
History of Present Illness Consult date: 04/19/21 Reason for Consult: weakness and DT History of present illness: I am weak History of present illness: 65 YO Female with HTN, ETOH Dependence,Nicotine Dependence, PSA, Vascular Dementia with Behavioral Disturbance, Cerebral Atherosclerosis currently an inpatient at [facility] for polysubstance abuse presents to ED for evaluation. Patient has diminished cognition and is only able to provide minimal history. Patient reports I feel weak". Additional history taken from EMS staff, ED staff, as well as records facility staff. As per staff the patient had experienced increased confusion over the past 1 day with concomitant complaints of weakness. EMS was notified and upon arrival the patient was found to be in distress and subsequent transported to [facility] for further care and evaluation of the aforementioned symptoms. The patient was seen and evaluated in the emergency department. All lab and imaging studies reviewed. The patient was found to be tremulous, agitated, diaphoretic, confused. Patient found to have clinical symptoms consistent with delirium tremens as well as acute kidney injury, metabolic encephalopathy, osteoarthritis, and lumbar disc disease. Neurosurgery team consulted in ED pt. 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 No further history is obtainable. Patient has a positive gag reflex and is able to protect his airway without difficulty. No prior admission for review. No medication listed at time of admission for reconciliation. Patient has not been vaccinated against COVID-19. Advanced care planning conducted in ED. today he is feeling much better no sign of DT he is planing to quit smoking and drinking walking in his room with no difficulty denied weakness or pain Past History Past Medical History: hypertension, other (See HPI) Past Surgical History: total hip replacement Social history: , smoking, alcohol abuse Family history: hypertension Medications and Allergies Allergies Allergy/AdvReac Type Severity Reaction Status Date / Time No Known Allergies Allergy Verified 04/16/21 17:03 Review of Systems ROS unobtainable: due to mental status Past History Past Medical History: hypertension, other (See HPI) Past Surgical History: total hip replacement Social history: , smoking, alcohol abuse Family history: hypertension Medications and Allergies Allergies Allergy/AdvReac Type Severity Reaction Status Date / Time No Known Allergies Allergy Verified 04/16/21 17:03 Home Medications Medication Instructions Recorded Confirmed Last Taken Type No Known Home Medications [No 04/18/21 04/18/21 Unknown History Reported Home Medications] Active Meds: Active Medications Acetaminophen (Acetaminophen 325 Mg Tab) 650 mg PO Q4H PRN PRN Reason: Pain MILD(1-3)/Fever >100.5/DOMINGUEZ Albuterol (Albuterol 2.5 Mg/3 Ml Nebu) 2.5 mg IH Q4HRT PRN PRN Reason: Shortness Of Breath Folic Acid (Folic Acid 1 Mg Tab) 1 mg PO QDAY [facility] Last Admin: 04/18/21 10:49 Dose: 1 mg Documented by: Hydromorphone HCl (Hydromorphone 1 Mg/1 Ml Inj) 0.5 mg IV Q24H PRN PRN Reason: Pain , Severe (7-10) Lorazepam (Lorazepam 2 Mg/Ml Vial) 2 mg IV Q1HR PRN PRN Reason: CIWA-Ar 8-15 Ondansetron HCl (Ondansetron 4 Mg/2 Ml Inj) 4 mg IV Q8H PRN PRN Reason: Nausea And Vomiting Oxycodone/Acetaminophen (Oxycodone /Acetaminophen 5-325mg Tab) 1 tab PO Q12H PRN PRN Reason: Pain, Moderate (4-6) Sodium Chloride (Sodium Chloride 0.9% 10 Ml Flush Syringe) 10 ml IV BID [facility] Last Admin: 04/18/21 21:57 Dose: 10 ml Documented by: Sodium Chloride (Sodium Chloride 0.9% 10 Ml Flush Syringe) 10 ml IV PRN PRN PRN Reason: LINE FLUSH Physical Examination - Vital Signs Vital Signs: Vital Signs Pulse Resp BP Pulse Ox 62 16 138/94 96 04/16/21 11:16 04/16/21 11:16 04/16/21 11:16 04/16/21 11:16 - Constitutional General appearance: comfortable - EENT EENT: Present: PERRL, mucous membranes moist - Respiratory Respiratory: Present: chest non-tender, lungs clear, rhonchi - Cardiovascular Cardiovascular: Present: regular rate, normal S1, normal S2 Extremities: Present: no peripheral edema bilatateraly, no clubbing, cyanosis - Gastrointestinal Gastrointestinal: Present: normoactive bowel sounds - Integumentary Integumentary: Present: normal - Neurologic Cranial nerve examination: PERRL, EOMI, intact Speech examination: intact Sensorimotor examination: intact Detailed motor examination: grossly full strength in Detailed sensory examination: intact, light touch, vibration Reflex and gait examination: other (reflexes are suppressed bilateral absent alicia sign) Results - Laboratory Findings CBC and BMP: 04/17/21 04:10 04/18/21 05:11 Abnormal Lab Findings: Abnormal Labs 04/16/21 04/16/21 04/16/21 11:52 11:52 15:31 WBC 4.0 L RBC 5.04 H Hgb 16.2 H Hct 48.5 H MCV 96 H MCH [place] % (Auto) 15.1 H Eos % (Auto) 5.6 H Monocytes % (Manual) Eosinophils % (Manual) Seg Neutrophils # Man Sodium 136 L Carbon Dioxide 32 H BUN 21 H Creatinine 1.8 H AST 76 H ALT 72 H Total Creatine Kinase 177 H Albumin 3.7 L 04/17/21 04/17/21 04/18/21 04:10 04:10 05:11 WBC 3.7 L RBC Hgb Hct MCV 96 H MCH 33 H [place] % (Auto) Eos % (Auto) Monocytes % (Manual) 12.0 H Eosinophils % (Manual) 8.0 H Seg Neutrophils # Man 1.7 L Sodium 136 L 133 L Carbon Dioxide 33 H BUN 22 H 23 H Creatinine 1.6 H 1.4 H AST 68 H ALT 66 H Total Creatine Kinase Albumin 3.4 L Assessment and Plan Assessment and Plan - Patient Problems # Delirium tremens -Alcohol withdrawal protocol: -Seizure precautions, - aspiration precautions, -fall precautions, -banana bag, -CIWA protocol, -IV fluid resuscitation therapy # Acute kidney injury (KRISH) with acute tubular necrosis (ATN) -BMP, -IV fluid resuscitation therapy, - repeat BMP in a.m. to monitor serum creatinine as well as GFR -BUN/Cr today is 23/1.4 # Lumbar disc disease -MRI of thoracic and lumbar spine is noted, -neurosurgery team consulted, - supportive care. -Possible underlying neuropathy related to alcoholism -exam today is unremarkable -Multivitamin daily po on d/c -stop smoking and drinking # Osteoarthritis -Supportive care, pain control. # Metabolic encephalopathy -Neuro check, -seizure precautions, - MRI brain is remarkable for white matter changes # DVT prophylaxis SCD to bilateral lower extremities while in bed (7) Advance care planning Disease education conducted, care plan discussed, diagnosis discussed, prognosis discussed, +30 minutes. will sign off
[2021-04-19] MEDS: FOLIC ACID 1 MG TAB PO SCH (11:05)
[2021-04-19 12:53] VITALS: BP 147/102
--- NOTE | 2021-04-19 13:13 | Discharge Summary ---
Providers - Providers Date of Admission: 04/16/21 16:57 Date of discharge: 04/19/21 Attending physician: GLORIA GARCIA 04/16/21 15:21 Consult to Physician [CONS] Stat Comment: Consulting Provider: LEORA IBRAHIM II Physician Instructions: Reason For Exam: lumbar ddd 04/17/21 16:45 Consult to Physician [CONS] Routine Comment: Consulting Provider: AURELIANO HATHAWAY Physician Instructions: Reason For Exam: Demyelinating radiculopathy 04/18/21 15:57 Physical Therapy Evaluation and Treat [CONS] Routine Comment: Reason For Exam: Debility Primary care physician: GRINDER HAND Hospitalization Condition: Fair Disposition: 01 HOME / SELF CARE / HOMELESS Final Discharge Diagnosis (Prints w/discharge instructions): --Delirium tremens. --Acute kidney injury (KRISH) with acute tubular necrosis (ATN). --Degenerative disc disease with osteoarthritis. --Metabolic encephalopathy due to alcoholism. --HTN Time spent for discharge: 34 minutes Core Measure Documentation - Palliative Care Palliative Care/ Comfort Measures: Not Applicable - Core Measures Any of the following diagnoses?: none Exam - Physical Exam Narrative exam: GENERAL: well-developed and well-nourished -Malag[place] male lying on bed appeared to be in no discomfort. HEENT: Normocephalic. Atraumatic. No conjunctival congestion or icterus. Patient has moist mucous membranes. NECK: Supple. Trachea midline. CHEST/LUNGS: Clear to auscultated bilaterally, breathing nonlabored. No wheezes crackles or rhonchi. HEART/CARDIOVASCULAR: Regular in rate and rhythm. S1 and S2 positive. ABDOMEN: Abdomen is soft, nontender. Patient has normal bowel sounds. SKIN: There is no rash. Warm and dry. NEURO: No focal motor deficit. Follows command. MUSCULOSKELETAL: No joint effusion or tenderness. EXTRIMITY: No edema, no cyanosis or clubbing. PSYCH: Cooperative. - Constitutional Vitals: Temp Pulse Resp BP Pulse Ox 98.3 F 67 20 147/102 98 04/19/21 12:12 04/19/21 12:12 04/19/21 12:12 04/19/21 12:12 04/19/21 12:12 Plan Activity: advance as tolerated Weight Bearing Status: Weight Bear as Tolerated Diet: low fat, low salt Special Instructions: record daily BP diary Additional Instructions: Abstinence from alcohol. Check blood glucose daily. Repeat BMP in 1 week Follow up with: PRIMARY CAREMD [Primary Care Provider] - 7 Days KEKE OKEEFE MD [Staff Physician] - 7 Days Prescriptions: Folic Acid [Folvite] 1 mg PO QDAY #30 tablet Metoprolol [Lopressor TAB] 50 mg PO BID #60 tablet
[2021-04-19] MEDS ORDERED: METOPROLOL TARTRATE 50 MG TAB PO SCH (14:00)
== END 2021-04-19 16:30 | disposition home or self-care (01) | DRG 70 ==
LOC: ED 10:29 → 3A 16:57 → 4A 04-17 20:48
PROVIDERS: ADMIT Internal Medicine; ATTEND Internal Medicine
DX: G93.41 Metabolic encephalopathy (principal); N17.0 Acute kidney failure with tubular necrosis; F10.231 Alcohol dependence with withdrawal delirium; F01.51 Vascular dementia, unspecified severity, with behavioral disturbance; M46.46 Discitis, unspecified, lumbar region; Z20.822 Contact with and (suspected) exposure to COVID-19; I10 Essential (primary) hypertension; F17.200 Nicotine dependence, unspecified, uncomplicated; Z96.642 Presence of left artificial hip joint; Z82.49 Family history of ischemic heart disease and other diseases of the circulatory system; M19.90 Unspecified osteoarthritis, unspecified site; R25.1 Tremor, unspecified
CPT/HCPCS: 36415; 70551; 71045; 72146; 72148; 80048; 80053; 82550; 83735; 84100; 84443; 85007; 85025; G0378; J3411; J7030; U0003